=== PATIENT | female | born 1980 | race Asian ===

== ENCOUNTER 2017-02-02 10:33 | Outpatient (CLI) | payer OTHER ==
[~2017-02-02 10:33] MED LIST: LISI20TA11 PO
== END 2017-02-02 19:47 | disposition home or self-care (01) ==
LOC: MRI 10:33
DX: H53.8 Other visual disturbances (principal); R20.0 Anesthesia of skin; I10 Essential (primary) hypertension
CPT/HCPCS: 36415; 82565; 84520; A9576

== ENCOUNTER 2018-05-24 13:03 | Emergency (ER) | payer OTHER ==
[~2018-05-24] VITALS: Ht 175.3 cm; Wt 97.1 kg
[2018-05-24 13:06] VITALS: TEMP 97.9
[2018-05-24] MEDS ORDERED: COZAAR25 MG PO (13:15)
[2018-05-24] MEDS ORDERED: LOSA50TA PO (13:23)
[2018-05-24 14:14] LABS: POTASSIUM 3.7 mmol/L (3.6-5.2)
[2018-05-24 14:24] LABS: PLATELET COUNT 251 K/uL (152-353)
[2018-05-24 14:58] VITALS: BP 142/87
== END 2018-05-24 15:10 | disposition home or self-care (01) ==
LOC: ED 13:03
DX: I10 Essential (primary) hypertension (principal); R51 Headache
CPT/HCPCS: 80053; 81000; 85027; 99283

== ENCOUNTER 2019-09-05 12:17 | Emergency (ER) | payer OTHER ==
[~2019-09-05] VITALS: Ht 167.6 cm; Wt 104.3 kg
[~2019-09-05 12:17] MED LIST changes: +COZAAR25 MG PO; +LOSA50TA PO
[2019-09-05 14:00] VITALS: TEMP 97.6
[2019-09-05 15:04] LABS: PLATELET COUNT 236 K/uL (152-353)
[2019-09-05 15:13] LABS: SODIUM 139 mmol/L (136-145)
[2019-09-05 15:21] LABS: PARTIAL THROMBOPLASTIN TIME 29.9 SECONDS (24.5-33.6)
[2019-09-05 16:54] VITALS: BP 135/93
== END 2019-09-05 16:54 | disposition home or self-care (01) ==
LOC: ED 12:17
PROVIDERS: Hospitalist
DX: I16.0 Hypertensive urgency (principal)
CPT/HCPCS: 36415; 80053; 82550; 83880; 84484; 85027; 85610; 85730; 93005; 96374; 99284; J0360

== ENCOUNTER 2020-04-15 13:53 | Outpatient (CLI) | payer OTHER ==
[2020-04-15 14:05] LABS: PLATELET COUNT 295 K/uL (152-353)
[2020-04-15 14:37] LABS: POTASSIUM 4.5 mmol/L (3.6-5.2)
== END 2020-04-15 19:47 | disposition home or self-care (01) ==
LOC: LAB 13:53
PROVIDERS: Internal Medicine
DX: I10 Essential (primary) hypertension (principal)
CPT/HCPCS: 80053; 80061; 81000; 84439; 84443; 85027

== ENCOUNTER 2021-09-24 11:53 | Emergency (ER) | payer OTHER ==
[~2021-09-24] VITALS: Ht 167.6 cm; Wt 104.3 kg
[2021-09-24 12:06] VITALS: TEMP 97.2
[2021-09-24 12:37] VITALS: BP 159/111
== END 2021-09-24 12:53 | disposition home or self-care (01) ==
LOC: ED 11:53
DX: J06.9 Acute upper respiratory infection, unspecified (principal); I16.0 Hypertensive urgency; Z20.822 Contact with and (suspected) exposure to COVID-19
CPT/HCPCS: 87502; 87635; 87651; 99283; U0003

== ENCOUNTER 2021-10-03 00:03 | Emergency (ER) | payer OTHER ==
[~2021-10-03] VITALS: Ht 170.2 cm; Wt 108.9 kg
[2021-10-03 01:43] LABS: PLATELET COUNT 389 K/uL (152-353)
[2021-10-03 01:46] LABS: POTASSIUM 3.3 mmol/L (3.6-5.2)
[2021-10-03 01:54] LABS: PARTIAL THROMBOPLASTIN TIME 24.7 SECONDS (24.5-33.6)
[2021-10-03 06:09] LABS: POTASSIUM 3.7 mmol/L (3.6-5.2)
[2021-10-03 06:55] VITALS: BP 124/79; TEMP 98
== END 2021-10-03 06:55 | disposition home or self-care (01) ==
LOC: ED 00:03
PROVIDERS: Family Medicine
DX: R10.13 Epigastric pain (principal); E87.1 Hypo-osmolality and hyponatremia; R10.84 Generalized abdominal pain; Z20.822 Contact with and (suspected) exposure to COVID-19
CPT/HCPCS: 36415; 80048; 80053; 81000; 81025; 82550; 84484; 85027; 85379; 85610; 85730; 87635; 93005; 96360; 99284; U0003

== ENCOUNTER 2021-10-08 04:36 | Emergency (ER) | payer OTHER ==
[~2021-10-08] VITALS: Ht 170.2 cm; Wt 108.0 kg
[2021-10-08 04:51] VITALS: TEMP 98.8
[2021-10-08 06:31] LABS: PLATELET COUNT 356 K/uL (152-353)
[2021-10-08 06:40] LABS: POTASSIUM 4.1 mmol/L (3.6-5.2)
[2021-10-08 07:44] VITALS: BP 152/87
== END 2021-10-08 07:48 | disposition home or self-care (01) ==
LOC: ED 04:36
PROVIDERS: Emergency Medicine
DX: I47.1 Supraventricular tachycardia (principal)
CPT/HCPCS: 80053; 81000; 84443; 84484; 85027; 93005; 99283

== ENCOUNTER 2021-10-09 16:52 | Emergency (ER) | payer OTHER ==
[~2021-10-09] VITALS: Ht 170.2 cm; Wt 108.0 kg
[2021-10-09 18:48] LABS: PLATELET COUNT 396 K/uL (152-353)
[2021-10-09 19:01] LABS: POTASSIUM 3.5 mmol/L (3.6-5.2)
[2021-10-09 20:28] VITALS: BP 171/93; TEMP 98.4
== END 2021-10-09 20:28 | disposition home or self-care (01) ==
LOC: ED 16:52
PROVIDERS: Emergency Medicine
DX: B34.9 Viral infection, unspecified (principal); N83.8 Other noninflammatory disorders of ovary, fallopian tube and broad ligament; K59.09 Other constipation; Z20.822 Contact with and (suspected) exposure to COVID-19
CPT/HCPCS: 80053; 81000; 85027; 87502; 87635; 96360; 96374; 99284; J1885; J2405; U0003

== ENCOUNTER 2021-10-15 16:02 | Emergency (ER) | payer OTHER ==
[~2021-10-15] VITALS: Ht 170.2 cm; Wt 108.0 kg
[2021-10-15 16:50] VITALS: BP 166/89; TEMP 97.2
== END 2021-10-15 16:50 | disposition home or self-care (01) ==
LOC: ED 16:02
DX: T48.4X5A Adverse effect of expectorants, initial encounter (principal); X58.XXXA Exposure to other specified factors, initial encounter; Y92.89 Other specified places as the place of occurrence of the external cause
CPT/HCPCS: 96372; 99283; J1200; J2930

== ENCOUNTER 2021-10-18 11:30 | Emergency (ER) | payer OTHER ==
[~2021-10-18] VITALS: Ht 170.2 cm; Wt 108.0 kg
[2021-10-18 11:33] VITALS: TEMP 98
[2021-10-18 12:03] LABS: PLATELET COUNT 335 K/uL (152-353); POTASSIUM 3.9 mmol/L (3.6-5.2)
[2021-10-18 13:00] VITALS: BP 147/91
== END 2021-10-18 13:15 | disposition home or self-care (01) ==
LOC: ED 11:30
PROVIDERS: Emergency Medicine
DX: R06.02 Shortness of breath (principal); F41.8 Other specified anxiety disorders; R07.89 Other chest pain; K21.9 Gastro-esophageal reflux disease without esophagitis; E87.1 Hypo-osmolality and hyponatremia
CPT/HCPCS: 80053; 83880; 84484; 85027; 85379; 93005; 99283

== ENCOUNTER 2021-10-19 15:44 | Emergency (ER) | payer OTHER ==
[~2021-10-19] VITALS: Ht 170.2 cm; Wt 108.0 kg
[2021-10-19 15:49] VITALS: TEMP 97
[2021-10-19 16:30] VITALS: BP 158/86
== END 2021-10-19 16:34 | disposition home or self-care (01) ==
LOC: ED 15:44
DX: I10 Essential (primary) hypertension (principal); F17.210 Nicotine dependence, cigarettes, uncomplicated
CPT/HCPCS: 99281

== ENCOUNTER 2021-10-21 21:46 | Emergency (ER) | payer OTHER ==
[~2021-10-21] VITALS: Ht 170.2 cm; Wt 108.0 kg
[2021-10-21 21:50] VITALS: BP 163/103; TEMP 98.7
== END 2021-10-21 22:30 | disposition home or self-care (01) ==
LOC: ED 21:46
DX: F41.8 Other specified anxiety disorders (principal); T78.49XA Other allergy, initial encounter; X58.XXXA Exposure to other specified factors, initial encounter; Y92.89 Other specified places as the place of occurrence of the external cause
CPT/HCPCS: 99281

== ENCOUNTER 2021-10-23 11:33 | Emergency (ER) | payer OTHER ==
[~2021-10-23] VITALS: Ht 170.2 cm; Wt 108.0 kg
[2021-10-23 13:45] VITALS: BP 172/94; TEMP 98
== END 2021-10-23 13:45 | disposition home or self-care (01) ==
LOC: ED 11:33
DX: M54.59 Other low back pain (principal); M79.18 Myalgia, other site; N83.8 Other noninflammatory disorders of ovary, fallopian tube and broad ligament
CPT/HCPCS: 80307; 81000; 96372; 99283; J1885; J2550

== ENCOUNTER 2021-10-23 13:55 | Emergency (ER) | payer OTHER ==
[~2021-10-23] VITALS: Ht 170.2 cm; Wt 102.5 kg
[2021-10-23 14:00] VITALS: BP 140/88; TEMP 98.4
== END 2021-10-23 14:11 | disposition home or self-care (01) ==
LOC: ED 13:55
DX: Z53.21 Procedure and treatment not carried out due to patient leaving prior to being seen by health care provider (principal)
CPT/HCPCS: 99281

== ENCOUNTER 2022-10-21 13:15 | Emergency (ER) | payer OTHER ==
[~2022-10-21] VITALS: Ht 170.2 cm; Wt 111.6 kg
[2022-10-21 13:27] VITALS: TEMP 98.9
[2022-10-21 14:18] LABS: PLATELET COUNT 312 K/uL (152-353)
[2022-10-21 14:52] LABS: POTASSIUM 4.1 mmol/L (3.6-5.2)
[2022-10-21 17:10] VITALS: BP 131/105
== END 2022-10-21 17:10 | disposition short-term general hospital (02) ==
LOC: ED 13:15
PROVIDERS: Emergency Medicine
DX: O60.03 Preterm labor without delivery, third trimester (principal); Z3A.36 36 weeks gestation of pregnancy
CPT/HCPCS: 80053; 81002; 84702; 85027; 99284

== ENCOUNTER 2023-10-26 15:02 | Outpatient (CLI) | payer OTHER | END 2023-10-26 19:34 | disposition home or self-care (01) | LOC: RAD 15:02 | PROVIDERS: ATTEND Internal Medicine | DX: R05.9 Cough, unspecified (principal) ==